=== PATIENT | female | born 1960 | race African-American/Black ===

== ENCOUNTER 2017-05-11 04:33 | Emergency (ER) | payer BC | END 2017-05-11 05:04 | disposition home or self-care (01) | LOC: SCSER 04:33 | DX: I10 Essential (primary) hypertension (principal); Z79.899 Other long term (current) drug therapy | CPT/HCPCS: 99283 ==

== ENCOUNTER 2017-11-16 14:14 | Outpatient (CLI) | payer BC | END 2017-11-16 14:15 | disposition home or self-care (01) | LOC: BICMAMMO 14:14 | PROVIDERS: ATTEND Internal Medicine | DX: Z12.31 Encounter for screening mammogram for malignant neoplasm of breast (principal); Z78.0 Asymptomatic menopausal state; Z80.3 Family history of malignant neoplasm of breast | CPT/HCPCS: 77063; 77067; 77080 ==

== ENCOUNTER 2020-11-09 17:57 | Emergency (ER) | payer BC | END 2020-11-09 18:44 | disposition home or self-care (01) | LOC: ERS 17:57 | DX: H10.9 Unspecified conjunctivitis (principal); I10 Essential (primary) hypertension | CPT/HCPCS: 99283 ==